=== PATIENT | female | born 1950 | race Caucasian/White ===

== ENCOUNTER → 2017-05-21 | Outpatient (CLI) | payer OTHER | END | disposition home or self-care (01) | LOC: CFH 10:56 | PROVIDERS: ATTEND Surgery | DX: E04.1 Nontoxic single thyroid nodule (principal) | CPT/HCPCS: 76536 ==

== ENCOUNTER 2020-01-06 09:37 | Emergency (ER) | payer MEDICARE ==
[~2020-01-06] VITALS: Ht 162.6 cm; Wt 64.5 kg
--- NOTE | 2020-01-06 09:59 | NUR ---
BROUGHT EVELIO FROM TRIAGE WITH CHIEF COMPLAINT OF LBP FOR THREE WEEKS- CMS INTACT. SEEN BY VIC, MRI DONE HOWEVER INCREASING PAIN CANT WIT TILL FOLLOW UP 01/14. DENIES N/V, CP.
[2020-01-06 10:04] VITALS: BP 145/87
--- NOTE | 2020-01-06 10:21 | NUR ---
pt to imaging
[2020-01-06] MEDS ORDERED: HYDROmorphone 1 MG/ML, 1ML INJ ONE (10:24)
[2020-01-06] MEDS ORDERED: ONDANSETRON 2MG/ML, 2ML ONE (10:24)
[2020-01-06] MEDS ORDERED: SODIUM CHLORIDE FLUSH 10ML SYR IVF ONE (10:30)
[2020-01-06] MEDS ORDERED: METH4TAB6 PO (10:30)
[2020-01-06] MEDS ORDERED: ONDANSETRON 2MG/ML, 2ML IVPush ONE (10:30)
[2020-01-06] MEDS ORDERED: HYDROmorphone 2 MG/ML, 1ML IVPush PRN (10:30)
[2020-01-06] MEDS ORDERED: CYCL-259 PO (10:30)
[2020-01-06] MEDS ORDERED: MELO15TA24 PO (10:30)
--- NOTE | 2020-01-06 10:40 | NUR ---
ELKIN MARINO AT BEDSIDE
[2020-01-06 10:52] LABS: BASOPHILS % (AUTO) 0 % (0-1); EOSINOPHILS # (AUTO) 0.02 x10^3/uL (0-0.4); EOSINOPHILS % (AUTO) 0 % (1-7); LYMPHOCYTES # (AUTO) 1.09 x10^3/uL (1-3.4); LYMPHOCYTES % (AUTO) 9 % (22-44); MD NO; MEAN CORPUSCULAR HEMOGLOBIN 29.4 pg (27.0-34.8); MEAN CORPUSCULAR HGB CONC 33.3 g/dL (32.4-35.8); MEAN CORPUSCULAR VOLUME 88.3 fL (80-100); MEAN PLATELET VOLUME 8.8 fL (7.4-10.4); MONOCYTES % (AUTO) 1 % (2-9); NEUTROPHILS # (AUTO) 10.69 x10^3/uL (1.8-6.8); NEUTROPHILS % (AUTO) 90 % (42-75); PLATELET COUNT 302 x10^3/uL (130-400); RED BLOOD COUNT 5.34 x10^6/uL (3.82-5.3); RED CELL DISTRIBUTION WIDTH 14.1 % (9.6-15.2)
[2020-01-06 11:01] LABS: ALANINE AMINOTRANSFERASE 17 U/L (12-78); ALBUMIN 3.4 g/dL (3.4-5.0); ANION GAP 6 mmol/L (5-15); CALCIUM 9.3 mg/dL (8.5-10.1); CHLORIDE 109 mmol/L (98-107)
[2020-01-06 11:03] LABS: ALKALINE PHOSPHATASE 69 U/L (45-117); BILIRUBIN,TOTAL 0.4 mg/dL (0.2-1.0); TOTAL PROTEIN 7.2 g/dL (6.4-8.2)
--- NOTE | 2020-01-06 11:05 | NUR ---
STANDBY ASSIST TO BATHROOM, URINE SAMPLE OBTAINED.
[2020-01-06 11:43] LABS: MICROSCOPIC AUTO
[2020-01-06 11:44] LABS: CULTURE INDICATED? YES
== END 2020-01-06 12:08 | disposition home or self-care (01) ==
LOC: ED 10:18
DX: M54.5 Low back pain (principal); G89.29 Other chronic pain
CPT/HCPCS: 36415; 73502; 80053; 81001; 85025; 87086; 96374; 96375; 99284; J1170; J2405

== ENCOUNTER → 2020-05-27 | Outpatient (CLI) | payer MEDICARE ==
[~2020-05-27] MED LIST: CYCL-259 PO; MELO15TA24 PO; METH4TAB6 PO
== END | disposition home or self-care (01) ==
LOC: CFH 10:53
PROVIDERS: ATTEND Family Medicine
DX: Z01.818 Encounter for other preprocedural examination (principal); M85.80 Other specified disorders of bone density and structure, unspecified site
CPT/HCPCS: 77080

== ENCOUNTER → 2020-07-15 | Outpatient (CLI) | payer MEDICARE ==
[~2020-07-15] MED LIST changes: +REGADENOSON 0.4 MG/5 ML SYRINGE ONE
== END | disposition home or self-care (01) ==
LOC: CFH 08:20
PROVIDERS: ATTEND Family Medicine
DX: Z01.818 Encounter for other preprocedural examination (principal)
CPT/HCPCS: 78452; 93017; A9502; J2785

== ENCOUNTER → 2020-08-30 | Outpatient (CLI) | payer MEDICARE ==
[~2020-08-30] MED LIST changes: -REGADENOSON 0.4 MG/5 ML SYRINGE ONE
== END | disposition home or self-care (01) ==
LOC: CFH 10:03
PROVIDERS: ATTEND Internal Medicine Cardiovascular Disease
DX: Z01.810 Encounter for preprocedural cardiovascular examination (principal); Z13.6 Encounter for screening for cardiovascular disorders; E78.2 Mixed hyperlipidemia; I36.1 Nonrheumatic tricuspid (valve) insufficiency
CPT/HCPCS: 75571; 93306

== ENCOUNTER → 2020-12-19 | Outpatient (CLI) | payer MEDICARE ==
[~2020-12-19] MED LIST changes: -CYCL-259 PO; +CYCL10TA2 PO
== END | disposition home or self-care (01) ==
LOC: CFH 14:18
PROVIDERS: ATTEND Physician Assistant Surgical
DX: Z01.818 Encounter for other preprocedural examination (principal); M51.35 Other intervertebral disc degeneration, thoracolumbar region; M41.85 Other forms of scoliosis, thoracolumbar region; M47.817 Spondylosis without myelopathy or radiculopathy, lumbosacral region; M25.78 Osteophyte, vertebrae
CPT/HCPCS: 72128; 72131

== ENCOUNTER → 2021-04-07 | Outpatient (CLI) | payer MEDICARE ==
[~2021-04-07] MED LIST changes: +OMNIPAQUE 350 MG/ML, 100ML BOTTLE ONE
[2021-04-07 13:22] LABS: CREATININE 0.87 mg/dL (0.55-1.02)
== END | disposition home or self-care (01) ==
LOC: RAD 12:36
PROVIDERS: ATTEND Neurological Surgery
DX: K82.8 Other specified diseases of gallbladder (principal); R10.9 Unspecified abdominal pain
CPT/HCPCS: 36415; 74177; 82565; Q9967

== ENCOUNTER 2021-04-24 11:28 | Day surgery (SDC) | payer MEDICARE ==
[~2021-04-24] VITALS: Ht 167.6 cm; Wt 63.3 kg
[~2021-04-24 11:28] MED LIST changes: -OMNIPAQUE 350 MG/ML, 100ML BOTTLE ONE
[2021-04-24 12:03] VITALS: BP 117/80
== END 2021-04-24 14:51 | disposition home or self-care (01) ==
LOC: OUT 11:28 → EDSTATUS 13:30 → OUT 14:51
PROVIDERS: ATTEND Surgery
DX: I97.638 Postprocedural hematoma of a circulatory system organ or structure following other circulatory system procedure (principal); Z79.899 Other long term (current) drug therapy
CPT/HCPCS: 72192